=== PATIENT | female | born 1990 | race Caucasian/White ===

== ENCOUNTER → 2016-10-17 | Outpatient (CLI) | payer OTHER ==
[~2016-10-17] MED LIST: ACET50TA PO; CIPR250T2 PO; DEXA2TA PO; IBUP200T2 PO; KEPP1000 PO; METF500T PO; OMEP20CA3 PO; VICO5TAB16 PO; ZONI100C2 PO; [UNRECOGNIZED DRUG - OTHER] PO
--- NOTE | 2016-10-17 17:52 | REP ---
Cervical spine seven views: There are no comparisons. Comparison is the MRI dated 08/03/2016. Vertebral body heights, interspacing alignment are normal. The prevertebral soft tissues are normal. The facets are normally aligned. There is no listhesis on flexion or extension. The odontoid view is unremarkable. There is no bony foraminal encroachment. Impression: Essentially negative plain film study of the cervical spine. Signed by Wilberto High MD 10/17/2016 05:43 P
--- NOTE | 2016-10-17 17:53 | REP ---
Lumbar spine seven views including lateral views with flexion and extension: Comparison is the MRI dated to 08/03/2016. Vertebral body heights, interspacing and alignment are normal. There is no spondylolysis or spondylolisthesis. There is no listhesis on the lateral views with flexion and extension. The pedicles, facets and sacroiliac articulations are unremarkable. Impression: Negative lumbar spine. Signed by Wilberto High MD 10/17/2016 05:44 P
== END ==
LOC: M RAD 09:29
PROVIDERS: ATTEND Neurological Surgery
DX: M54.81 Occipital neuralgia (principal); M47.892 Other spondylosis, cervical region; M47.896 Other spondylosis, lumbar region